=== PATIENT | male | born 1965 | race American Indian/Alaskan Native ===

== ENCOUNTER 2017-03-31 18:25 | Emergency (ER) | payer OTHER ==
[2017-03-31 18:25] VITALS: BMI 39.5
--- NOTE | 2017-03-31 18:32 | C.PDOC ---
History Of Present Illness 51 y/o M presents for medication refill. Takes Eliquis BID, has no complaints, has PMD f/u in 6 days. Chief Complaint (Nursing): Med Refill Past Medical History Family History: States: Unknown Family Hx - Social History Hx Tobacco Use: No Hx Alcohol Use: Yes Hx Substance Use: No - Immunization History Hx Tetanus Toxoid Vaccination: No Hx Influenza Vaccination: No Hx Pneumococcal Vaccination: No Review Of Systems Except As Marked, All Systems Reviewed And Found Negative. Constitutional: Negative for: Fever Cardiovascular: Negative for: Chest Pain Physical Exam - Physical Exam Appears: No Acute Distress Neurological/Psych: Normal Speech Disposition - Disposition Disposition: HOME/ ROUTINE Disposition Time: 18:30 Condition: STABLE Prescriptions: Apixaban [Eliquis] 5 mg PO BID #14 tab Instructions: Medicine Refill (ED) - Clinical Impression Clinical Impression: Medication refill
[2017-03-31 18:45] VITALS: BP 145/85; PULSE 87; RESP 20; TEMP 98.4; O2SAT 98
== END 2017-03-31 18:51 | disposition home or self-care (01) ==
LOC: C.ER 18:25
DX: Z76.0 Encounter for issue of repeat prescription (principal)

== ENCOUNTER 2017-04-01 09:37 | Emergency (ER) | payer OTHER ==
[2017-04-01 09:49] VITALS: BMI 59.8
[2017-04-01 09:50] VITALS: BP 139/79; PULSE 74; RESP 17; TEMP 98.6; O2SAT 99
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
== END 2017-04-01 09:59 | disposition home or self-care (01) ==
LOC: C.ER 09:37
DX: S43.409D Unspecified sprain of unspecified shoulder joint, subsequent encounter (principal); T30.0 Burn of unspecified body region, unspecified degree; V89.2XXD Person injured in unspecified motor-vehicle accident, traffic, subsequent encounter

== ENCOUNTER 2017-04-11 22:11 | Emergency (ER) | payer OTHER ==
[2017-04-11 22:11] VITALS: BMI 39.5
[2017-04-11] MEDS ORDERED: Oxycodone/Acetaminophen 5/325 mg Tab PO STA (23:34)
[2017-04-11] MEDS ORDERED: Naproxen 550 mg Tab PO STA (23:34)
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
[2017-04-11] MEDS ORDERED: Oxycodone/Acetaminophen 5/325 mg Tab ONE (23:56)
[2017-04-11] MEDS ORDERED: Naproxen 550 mg Tab PO ONE (23:56)
[2017-04-12 00:05] VITALS: BP 139/89; PULSE 82; RESP 19; TEMP 98.4
[2017-04-12 00:42] VITALS: O2SAT 98
== END 2017-04-12 00:07 | disposition home or self-care (01) ==
LOC: C.ER 22:11
DX: G89.21 Chronic pain due to trauma (principal); M25.511 Pain in right shoulder

== ENCOUNTER 2017-08-11 22:02 | Emergency (ER) | payer OTHER ==
[2017-08-11 22:03] VITALS: BMI 39.5
--- NOTE | 2017-08-11 22:26 | C.PDOC ---
Time Seen by Provider: 08/11/17 22:24 Chief Complaint (Nursing): Chest Pain Past Medical History Family History: States: Unknown Family Hx - Social History Hx Tobacco Use: No Hx Alcohol Use: Yes Hx Substance Use: No - Immunization History Hx Tetanus Toxoid Vaccination: No Hx Influenza Vaccination: No Hx Pneumococcal Vaccination: No Disposition - Disposition
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
[2017-08-11] MEDS ORDERED: Sodium Chloride 0.9% 1,000 ML IV ONE (22:36)
[2017-08-11 23:03] LABS: BASO # 0.1 K/uL (0.0-0.2); BASO % 0.8 % (0.0-2.0); EOS % 0.4 % (0.0-4.0); HEMATOCRIT 41.4 % (35.0-51.0); LYMPH # 4.1 K/uL (1.0-4.3); LYMPH % 37.7 % (20.0-40.0); MEAN CELL VOLUME 70.6 fL (80.0-94.0); MEAN CORPUSCULAR HEMOGLOBIN 24.2 pg (27.0-31.0); MEAN CORPUSCULAR HGB CONC 34.3 g/dL (33.0-37.0); MEAN PLATELET VOLUME 8.5 fL (7.2-11.7); MONO # 0.6 K/uL (0.0-0.8); MONO % 5.6 % (0.0-10.0); NRBC % 0.1 % (0.0-2.0)
[2017-08-11 23:05] LABS: WHITE BLOOD COUNT 10.8 K/uL (4.8-10.8)
[2017-08-11 23:11] LABS: PARTIAL THROMBOPLASTIN TIME 33 SECONDS (21-34)
[2017-08-11 23:12] LABS: CHLORIDE 104 mmol/L (98-107); POTASSIUM 3.7 mmol/L (3.6-5.2); SODIUM 137 mmol/L (132-148)
[2017-08-11 23:14] LABS: BILIRUBIN,TOTAL 0.4 mg/dL (0.2-1.3); GFR AFRICAN-AMERICAN > 60
[2017-08-11 23:15] LABS: ALB/GLOB RATIO 1.2 (1.0-2.1); ALKALINE PHOSPHATASE 62 U/L (38-126); ALT/SGPT 42 U/L (21-72); AST/SGOT 28 U/L (17-59); BLOOD UREA NITROGEN 18 mg/dL (9-20); CARBON DIOXIDE 21 mmol/L (22-30); GLUCOSE,RANDOM 101 mg/dL (75-110)
[2017-08-11] MEDS ORDERED: Sodium Chloride 0.9% 1,000 ML ONE (23:30)
[2017-08-12 00:03] VITALS: BP 110/70; RESP 14; O2SAT 100
[2017-08-12 00:35] VITALS: PULSE 96
--- NOTE | 2017-08-12 08:00 | RAD ---
PROCEDURE: CHEST RADIOGRAPH, 1 VIEW HISTORY: PALPITATIONS COMPARISON: 08/23/2016 FINDINGS: LUNGS: Mild venous congestion. Bilateral hilar prominence. Elevated left hemidiaphragm. PLEURA: No pneumothorax or pleural fluid seen. CARDIOVASCULAR: Normal. OSSEOUS STRUCTURES: No significant abnormalities. VISUALIZED UPPER ABDOMEN: Normal. OTHER FINDINGS: None. IMPRESSION: Mild venous congestion. Bilateral hilar prominence. Elevated left hemidiaphragm.
--- NOTE | 2017-08-12 11:45 | CARD ---
APPROVED REPORT EKG Measurement Heart [id number] <Conclusion> Sinus tachycardia Septal infarct, age undetermined Abnormal ECG
== END 2017-08-12 00:05 | disposition home or self-care (01) ==
LOC: C.ER 22:02
DX: R00.2 Palpitations (principal)
CPT/HCPCS: 71010; 80053; 84484; 85025; 85378; 85610; 85730; 93005; 96360; 96361; 99284; J7040